=== PATIENT | female | born 1975 | race Caucasian/White ===

== ENCOUNTER → 2016-11-09 | Outpatient (CLI) | payer BC ==
[2016-11-12 09:17] LABS: CALCIUM (PTHINTACT) 8.9 mg/dL (8.6-10.2)
== END | disposition home or self-care (01) ==
LOC: SLAB 12:48
PROVIDERS: Specialist
DX: E04.2 Nontoxic multinodular goiter (principal)
CPT/HCPCS: 36415; 82310; 83970